=== PATIENT | female | born 1955 | race Two or more races ===

== ENCOUNTER 2023-06-04 12:18 | Inpatient (IN) | payer OTHER, MEDICAID ==
[~2023-06-04] VITALS: Ht 160 cm; Wt 82.0 kg
[2023-06-04] MEDS ORDERED: ONDANSETRON HCL 4 MG/2 ML VIAL IV ONE (13:15)
[2023-06-04] MEDS ORDERED: SODIUM CHLORIDE 0.9% 1,000 ML IV ONE ×2 (13:15)
[2023-06-04 13:39] LABS: Basophils # (auto) 0.1 10 ^3/uL (0-0.2); Eosinophils # (auto) 0.1 10 ^3/uL (0-0.8); Monocytes # (auto) 0.6 10 ^3/uL (0-1.3); Nucleated Red Blood Cells % 0.1 %; White Blood Cell 8.2 10^3/uL (4.4-10.8)
[2023-06-04 13:41] LABS: Basophils % (auto) 1.2 % (0.0-2.0); Eosinophils % (auto) 1.4 % (0.0-7.0); Hematocrit 37.2 % (36.0-46.0); Hemoglobin 11.6 g/dL (12.2-16.2); Lymphocytes % (auto) 24.9 % (10.0-50.0); Mean Corpuscular Hemoglobin 25.6 pg (28.0-32.0); Mean Corpuscular Hgb Conc. 31.3 g/dL (32.0-36.0); Mean Corpuscular Volume 81.8 fL (80.0-100.0); Monocytes % (auto) 7.2 % (0.0-12.0); Neutrophils # (auto) 5.4 10 ^3/uL (1.6-8.6); Neutrophils % (auto) 65.3 % (37.0-80.0); Red Blood Cells 4.55 10^6/uL (4.0-5.20); Red Cell Distribution Width 17.7 % (11.8-14.3)
[2023-06-04 13:54] LABS: Base Excess -6.9 mmol/L (-2.0-2.0)
[2023-06-04 13:55] LABS: Calcium 9.3 mg/dL (8.5-10.1); Potassium 4.6 mmol/L (3.5-5.1)
[2023-06-04 14:04] LABS: BUN/Creatinine Ratio 15.4 (10.0-20.0); Bilirubin, Total 0.5 mg/dL (0.2-1.0); Total Protein 8.1 g/dL (6.4-8.2)
[2023-06-04] MEDS ORDERED: InsuLIN REG 1unit/0.01ml Soln (100units/ml) IV ONE (14:30)
[2023-06-04 14:31] LABS: INR 1.01 (0.9-1.15); Prothrombin Time 10.6 sec (9.3-11.8)
[2023-06-04] MEDS ORDERED: ALBUTEROL SULF 2.5 MG/0.5ML(0.5%) NEB SOLN NEB PRN (16:45)
[2023-06-04] MEDS ORDERED: DEXTROSE (50%) 50ML SYRG IV PRN (16:45)
[2023-06-04] MEDS ORDERED: ACETAMINOPHEN 325 MG TAB PO PRN (16:45)
[2023-06-04] MEDS ORDERED: SODIUM CHLORIDE 0.9% 1,000 ML IV SCH (16:45)
[2023-06-04 17:13] LABS: Cholesterol 182 mg/dL (< 200); Triglycerides 225 mg/dL (< 150)
[2023-06-04 17:16] LABS: HDL Cholesterol 52 mg/dL (40-59); LDL Cholesterol 104 mg/dL (< 100)
[2023-06-04 18:05] VITALS: BP 138/64; PULSE 97; RESP 20; TEMP 97.7; O2SAT 96
[2023-06-04] MEDS ORDERED: ACCU-CHEK COMFORT CURVE STRIP VI SCH (20:00)
[2023-06-04] MEDS ORDERED: InsuLIN REG 1unit/0.01ml Soln (100units/ml) SC SCH (20:00)
[2023-06-05] MEDS ORDERED: ENOXAPARIN SOD 40 MG/0.4 ML SYRINGE SC SCH (10:00)
== END 2023-06-04 20:15 | disposition left against medical advice (07) | DRG 638 ==
LOC: ER 12:18 → OVERFLOW 16:40
PROVIDERS: ADMIT Internal Medicine; ATTEND Internal Medicine
DX: E11.65 Type 2 diabetes mellitus with hyperglycemia (principal); E87.20 Acidosis, unspecified; E66.01 Morbid (severe) obesity due to excess calories; J45.909 Unspecified asthma, uncomplicated; E86.0 Dehydration; Z53.29 Procedure and treatment not carried out because of patient's decision for other reasons; Z88.0 Allergy status to penicillin; Z90.710 Acquired absence of both cervix and uterus; Z68.32 Body mass index [BMI] 32.0-32.9, adult
CPT/HCPCS: 36415; 36600; 70450; 71045; 80053; 80061; 82805; 83036; 83690; 84443; 84484; 85025; 85610; 96361; 96374; G0378; J1815; J2405

== ENCOUNTER 2023-06-06 17:28 | Emergency (ER) | payer OTHER, MEDICAID ==
[~2023-06-06] VITALS: Ht 160 cm; Wt 92.0 kg
[2023-06-06 18:23] VITALS: BP 116/58; PULSE 86; RESP 16; O2SAT 96
== END 2023-06-06 19:52 | disposition left against medical advice (07) ==
LOC: EDBD 17:28 → ER 17:28
DX: R73.9 Hyperglycemia, unspecified (principal); Z53.21 Procedure and treatment not carried out due to patient leaving prior to being seen by health care provider